=== PATIENT | male | born 1965 | race African-American/Black ===

== ENCOUNTER 2019-02-22 08:22 | Emergency (ER) | payer SELFPAY ==
[~2019-02-22] VITALS: Ht 188 cm; Wt 81.6 kg
[~2019-02-22 08:22] MED LIST: IBUP800T26 PO
[2019-02-22] MEDS ORDERED: morphine INJ 10 MG/ML 1ML (SYR OR VIAL) IM STA (09:23)
[2019-02-22] MEDS ORDERED: KETOROLAC 60 MG/2 ML VIAL IM STA (09:23)
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
--- NOTE | 2019-02-22 11:07 | NUR ---
SOFT COLLAR PLACED PER DR BRIGGS.
[2019-02-22] MEDS ORDERED: CYCL10TA9 PO (11:15)
[2019-02-22 11:20] VITALS: BP 136/95
== END 2019-02-22 11:20 | disposition home or self-care (01) ==
LOC: EDUNIT# 08:22 → ER 08:23
DX: S16.1XXA Strain of muscle, fascia and tendon at neck level, initial encounter (principal); S46.911A Strain of unspecified muscle, fascia and tendon at shoulder and upper arm level, right arm, initial encounter; S66.912A Strain of unspecified muscle, fascia and tendon at wrist and hand level, left hand, initial encounter; S29.012A Strain of muscle and tendon of back wall of thorax, initial encounter; R40.2142 Coma scale, eyes open, spontaneous, at arrival to emergency department; R40.2252 Coma scale, best verbal response, oriented, at arrival to emergency department; R40.2362 Coma scale, best motor response, obeys commands, at arrival to emergency department; F17.200 Nicotine dependence, unspecified, uncomplicated; V49.40XA Driver injured in collision with unspecified motor vehicles in traffic accident, initial encounter
CPT/HCPCS: 71046; 72125; 73030; 73130; 96372